=== PATIENT | female | born 1990 | race Caucasian/White ===

== ENCOUNTER 2021-06-03 02:19 | Inpatient (IN) ==
[2021-06-03] MEDS ORDERED: MOM Conc 10 ML UD.LIQ PO PRN (09:36)
[2021-06-03] MEDS ORDERED: Mag Hydrox/Al Hydrox/Simeth 30 ML UDC PO PRN (09:36)
[2021-06-03] MEDS ORDERED: Haloperidol Lactate 5 MG/ML VIAL IM PRN (09:36)
[2021-06-03] MEDS ORDERED: *HR* LORazepam 2 MG/ML VIAL IM PRN (09:36)
[2021-06-03] MEDS ORDERED: traZODone 50 MG TABLET PO PRN (09:36)
[2021-06-03] MEDS ORDERED: haloperidoL 5 MG TABLET PO PRN (09:36)
[2021-06-03] MEDS ORDERED: *HR* LORazepam 1 MG TABLET PO PRN (09:36)
[2021-06-03] MEDS ORDERED: cloNIDine HCL 0.1 MG TABLET PO ONE (11:26)
[2021-06-03] MEDS: Losartan/HCTZ 50-12.5 TABLET PO SCH (12:29)
[2021-06-03] MEDS: risperiDONE 1 MG TABLET PO SCH (20:30)
[2021-06-03] MEDS: hydrOXYzine pamoate 25 MG CAPSULE PO PRN (20:31)
[2021-06-03] MEDS: Acetaminophen 325 MG TABLET PO PRN (21:12)
[2021-06-04] MEDS: risperiDONE 1 MG TABLET PO SCH (08:52)
[2021-06-04] MEDS: Losartan/HCTZ 50-12.5 TABLET PO SCH (08:52)
[2021-06-04] MEDS: Acetaminophen 325 MG TABLET PO PRN (08:52)
[2021-06-04] MEDS ORDERED: Ibuprofen 400 MG TABLET PO PRN (10:38)
[2021-06-04] MEDS ORDERED: Acetaminophen 325 MG TABLET PO ONE (10:39)
[2021-06-04] MEDS: hydrOXYzine pamoate 25 MG CAPSULE PO PRN ×2 (13:04→21:15)
[2021-06-04] MEDS ORDERED: Acetaminophen 325 MG TABLET PO PRN (18:00)
[2021-06-04] MEDS ORDERED: risperiDONE 1 MG TABLET PO SCH (21:00)
[2021-06-05] MEDS ORDERED: risperiDONE 1 MG TABLET PO SCH (09:00)
[2021-06-05] MEDS: Losartan/HCTZ 50-12.5 TABLET PO SCH (09:08)
[2021-06-05 09:13] VITALS: BP 125/88; PULSE 119; TEMP 97.9; O2SAT 96
== END 2021-06-05 11:20 | disposition home or self-care (01) | DRG 753 ==
LOC: EMEROOARM 02:19 → 1ANU 08:59
PROVIDERS: ADMIT Psychiatry & Neurology Psychiatry; ATTEND Psychiatry & Neurology Psychiatry

== ENCOUNTER → 2022-06-12 03:35 | Observation (INO) ==
[2022-06-12 02:23] LABS: Basophils % 0.2 %; Eosinophils # 0.2 K/mcL (0.0-0.6); Eosinophils % 1.5 %; Hematocrit 33.1 % (35.3-44.9); Hemoglobin 10.7 g/dL (11.5-15.4); Immature Granulocytes % 0.2 % (0-4); Lymphocytes # 2.9 K/mcL (0.6-4.6); Lymphocytes % 28.5 %; Mean Corpuscular HGB Conc 32.3 g/dL (31.6-35.5); Mean Corpuscular Hemoglobin 30.1 pg (28.0-33.3); Mean Platelet Volume 10.5 fL (9.4-12.4); Monocytes # 0.7 K/mcL (0.0-1.3); Monocytes % 6.9 %; Neutrophils # 6.4 K/mcL (1.6-8.9); Platelet Count 212 K/mcL (140-400); Red Blood Count 3.56 M/mcL (3.82-4.97); Red Cell Distribution Width 13.2 % (11.5-14.5); Segmented Neutrophils % 62.7 %; White Blood Count 10.1 K/mcL (4.3-11.1)
[2022-06-12 02:24] LABS: Protein/Creatinine Ratio,Urine 0.19 mg/mg (0.00-0.20)
[2022-06-12 02:34] LABS: Alanine Aminotransferase 9 Units/L (7-52); Aspartate Amino Transferase 11 Units/L (13-39); BUN/Creatinine Ratio 21 (6-26); Blood Urea Nitrogen 12 mg/dL (6-20); Lactate Dehydrogenase 125 Units/L (140-271); Uric Acid 4.7 mg/dL (2.3-7.6); eGFR For African Americans > 60 (> 60); eGFR For Non-African Americans > 60 (> 60)
[~2022-06-12 03:35] MED LIST: 0.9 % Sodium Chloride 1,000 ML IV ONE; Lidocaine -MPF 2% 2 ML VIAL ONE; Metoclopramide 10 MG/2 ML VIAL IVP ONE
== END | disposition home or self-care (01) ==
LOC: 1NENULAB
PROVIDERS: ADMIT Advanced Practice Midwife; ATTEND Advanced Practice Midwife

== ENCOUNTER 2022-06-30 05:15 | Inpatient (IN) ==
[~2022-06-30 05:15] MED LIST changes: -0.9 % Sodium Chloride 1,000 ML IV ONE; +Azithromycin 500 MG in 0.9 % Sodium Chloride 250 ML IVPB PRN; +CeFAZolin Syr 3,000MG/30 ML 3,000 MG/30 ML SYRINGE IVPB ONE; +Famotidine 20 MG/2 ML VIAL IVP ONE; -Lidocaine -MPF 2% 2 ML VIAL ONE; +OXYTOCIN/RINGERS LACTATE 10 UNIT/166.6 ML BAG IVC ONE; +Oxytocin 30 UNIT/503 ML BAG IVC SCH; +Ringers Solution, Lactated 1,000 ML IVC ONE; +Ringers Solution, Lactated 1,000 ML IVC SCH
[2022-06-30 06:06] LABS: Basophils % 0.2 %; Eosinophils # 0.1 K/mcL (0.0-0.6); Eosinophils % 0.9 %; Hematocrit 33.3 % (35.3-44.9); Immature Granulocytes % 0.6 % (0-4); Lymphocytes # 2.9 K/mcL (0.6-4.6); Lymphocytes % 23.3 %; Mean Corpuscular Hemoglobin 30.3 pg (28.0-33.3); Mean Corpuscular Volume 91.7 fL (83.0-100.0); Mean Platelet Volume 10.9 fL (9.4-12.4); Monocytes # 0.7 K/mcL (0.0-1.3); Monocytes % 5.8 %; Neutrophils # 8.5 K/mcL (1.6-8.9); Platelet Count 276 K/mcL (140-400); Red Blood Count 3.63 M/mcL (3.82-4.97); Red Cell Distribution Width 13.5 % (11.5-14.5); Segmented Neutrophils % 69.2 %; White Blood Count 12.3 K/mcL (4.3-11.1)
[2022-06-30] MEDS ORDERED: *HR* Labetalol 20 MG/4 ML SYRINGE IVP ONE (06:41)
[2022-06-30] MEDS ORDERED: Naloxone 0.4 MG/ML INJ IVP PRN (07:27)
[2022-06-30] MEDS ORDERED: *HR* FentaNYL (PF) 100 MCG/2 ML VIAL IVP PRN (07:27)
[2022-06-30] MEDS ORDERED: *HR* Labetalol 20 MG/4 ML SYRINGE IVP PRN (07:27)
[2022-06-30] MEDS ORDERED: Promethazine 6.25 MG in Water for inj. (sterile) 20 ML IVPB PRN (07:27)
[2022-06-30] MEDS ORDERED: *HR* Nalbuphine 10 MG/ML AMPUL IV PRN (07:28)
[2022-06-30] MEDS ORDERED: *HR* Morphine Sulfate/PF 10 MG/10 ML AMPUL ONE (07:35)
[2022-06-30] MEDS ORDERED: Ondansetron 4 MG/2 ML VIAL ONE (07:35)
[2022-06-30] MEDS ORDERED: *HR* FentaNYL (PF) 100 MCG/2 ML VIAL ONE (07:38)
[2022-06-30] MEDS ORDERED: Acetaminophen IV 1,000 MG/100 ML BAG IVPB ONE (08:45)
[2022-06-30] MEDS ORDERED: Lidocaine -MPF 2% 2 ML VIAL ONE (08:47)
[2022-06-30] MEDS ORDERED: Ringers Solution, Lactated 1,000 ML ONE (08:48)
[2022-06-30] MEDS ORDERED: Ketorolac 30 MG/ML VIAL ONE (09:23)
[2022-06-30] MEDS ORDERED: hydrOXYzine pamoate 25 MG CAPSULE PO PRN (11:53)
[2022-06-30] MEDS ORDERED: Oxytocin 30 UNIT/503 ML BAG IVC SCH (11:53)
[2022-06-30] MEDS ORDERED: Rho Immune Globulin 1,500 UNIT SYRINGE IM ONE (11:53)
[2022-06-30] MEDS ORDERED: Metoclopramide 10 MG/2 ML VIAL IVP PRN (11:53)
[2022-06-30] MEDS ORDERED: Ibuprofen 600 MG TABLET PO SCH (12:41)
[2022-06-30] MEDS: Acetaminophen 325 MG TABLET PO SCH ×2 (13:57→23:18)
[2022-06-30] MEDS: metroNIDAZOLE 500 MG TABLET PO SCH ×2 (13:58→23:18)
[2022-06-30] MEDS: Ringers Solution, Lactated 1,000 ML IVC SCH (13:58)
[2022-06-30] MEDS: cephALEXin 500 MG CAPSULE PO SCH (13:58)
[2022-06-30] MEDS ORDERED: Magnesium Sulf 20 gm/SW 500mL 4 GM/100 ML BAG IV ONE (15:09)
[2022-06-30] MEDS ORDERED: Magnesium Sulf 20 gm/SW 500mL 6 GM/150 ML BAG IV ONE (15:13)
[2022-06-30] MEDS: Magnesium Sulf 20 gm/SW 500mL 20 GM/500 ML IV.SOLN IVC SCH (15:59)
[2022-06-30 16:59] LABS: Basophils % 0.1 %; Eosinophils % 0.3 %; Hematocrit 28.4 % (35.3-44.9); Hemoglobin 9.5 g/dL (11.5-15.4); Immature Granulocytes % 0.3 % (0-4); Lymphocytes % 17.5 %; Mean Corpuscular HGB Conc 33.5 g/dL (31.6-35.5); Mean Corpuscular Hemoglobin 30.9 pg (28.0-33.3); Mean Corpuscular Volume 92.5 fL (83.0-100.0); Mean Platelet Volume 10.5 fL (9.4-12.4); Monocytes # 0.8 K/mcL (0.0-1.3); Monocytes % 7.3 %; Neutrophils # 8.5 K/mcL (1.6-8.9); Platelet Count 193 K/mcL (140-400); Red Blood Count 3.07 M/mcL (3.82-4.97); Red Cell Distribution Width 13.6 % (11.5-14.5); Segmented Neutrophils % 74.5 %; White Blood Count 11.4 K/mcL (4.3-11.1)
[2022-06-30 17:13] LABS: Alanine Aminotransferase 5 Units/L (7-52); Aspartate Amino Transferase 17 Units/L (13-39); BUN/Creatinine Ratio 30 (6-26); Blood Urea Nitrogen 17 mg/dL (6-20); Lactate Dehydrogenase 215 Units/L (140-271)
[2022-06-30] MEDS: *HR* OxyCODONE Immed Rel 5 MG TABLET PO PRN ×2 (18:55→23:19)
[2022-06-30] MEDS: Insulin DETEMIR 100 UNIT/ML X5UNITS SUBQ SCH (22:13)
[2022-07-01] MEDS: Magnesium Sulf 20 gm/SW 500mL 20 GM/500 ML IV.SOLN IVC SCH ×2 (01:56→12:52)
[2022-07-01] MEDS: *HR* OxyCODONE Immed Rel 5 MG TABLET PO PRN ×2 (04:40→08:23)
[2022-07-01] MEDS: Acetaminophen 325 MG TABLET PO SCH ×4 (04:41→21:40)
[2022-07-01 04:57] LABS: Basophils % 0.1 %; Eosinophils % 0.4 %; Hematocrit 29.6 % (35.3-44.9); Hemoglobin 9.8 g/dL (11.5-15.4); Immature Granulocytes % 0.4 % (0-4); Lymphocytes # 0.9 K/mcL (0.6-4.6); Lymphocytes % 9.3 %; Mean Corpuscular HGB Conc 33.1 g/dL (31.6-35.5); Mean Corpuscular Hemoglobin 30.4 pg (28.0-33.3); Mean Corpuscular Volume 91.9 fL (83.0-100.0); Mean Platelet Volume 10.4 fL (9.4-12.4); Monocytes # 0.6 K/mcL (0.0-1.3); Monocytes % 5.8 %; Neutrophils # 8.5 K/mcL (1.6-8.9); Platelet Count 206 K/mcL (140-400); Red Blood Count 3.22 M/mcL (3.82-4.97); Red Cell Distribution Width 13.6 % (11.5-14.5); White Blood Count 10.1 K/mcL (4.3-11.1)
[2022-07-01] MEDS: Insulin LISPRO 300 UNITS/3 ML VIAL SUBQ SCH ×3 (08:22→17:24)
[2022-07-01] MEDS: cephALEXin 500 MG CAPSULE PO SCH ×3 (08:22→23:51)
[2022-07-01] MEDS: *HR* Enoxaparin 80 MG/0.8 ML SYRINGE SQ SCH ×2 (08:23→20:40)
[2022-07-01] MEDS: Prenatal Vit/FA 1 EACH TABLET PO SCH (08:23)
[2022-07-01] MEDS: metroNIDAZOLE 500 MG TABLET PO SCH ×3 (08:23→23:49)
[2022-07-01] MEDS: Simethicone 80 MG TAB.CHEW PO PRN ×2 (08:24→17:31)
[2022-07-01] MEDS: Insulin DETEMIR 100 UNIT/ML X5UNITS SUBQ SCH ×2 (08:38→22:45)
[2022-07-01] MEDS ORDERED: Losartan/HCTZ 50-12.5 TABLET PO SCH (09:00)
[2022-07-01] MEDS ORDERED: risperiDONE 1 MG TABLET PO SCH (09:00)
[2022-07-01] MEDS: Ketorolac 30 MG/ML VIAL IVP SCH ×3 (10:00→21:34)
[2022-07-01] MEDS: Ondansetron 4 MG/2 ML VIAL IVP PRN (20:31)
[2022-07-01] MEDS: Ringers Solution, Lactated 1,000 ML IVC SCH (22:32)
[2022-07-02] MEDS: Ondansetron 4 MG/2 ML VIAL IVP PRN (02:55)
[2022-07-02] MEDS: Simethicone 80 MG TAB.CHEW PO PRN (03:04)
[2022-07-02] MEDS: Ketorolac 30 MG/ML VIAL IVP SCH ×3 (03:52→15:55)
[2022-07-02] MEDS: Acetaminophen 325 MG TABLET PO SCH (05:38)
[2022-07-02] MEDS: *HR* OxyCODONE Immed Rel 5 MG TABLET PO PRN (05:39)
[2022-07-02] MEDS: Ringers Solution, Lactated 1,000 ML IVC SCH (07:49)
[2022-07-02] MEDS: *HR* Enoxaparin 80 MG/0.8 ML SYRINGE SQ SCH (08:09)
[2022-07-02] MEDS: cephALEXin 500 MG CAPSULE PO SCH (08:10)
[2022-07-02] MEDS: metroNIDAZOLE 500 MG TABLET PO SCH (08:10)
[2022-07-02] MEDS: Prenatal Vit/FA 1 EACH TABLET PO SCH (08:11)
[2022-07-02] MEDS ORDERED: NIFEdipine XL (24 HR) 30 MG TAB.ER.24 PO SCH (09:00)
[2022-07-02] MEDS: Insulin DETEMIR 100 UNIT/ML X5UNITS SUBQ SCH (10:16)
[2022-07-02 11:19] VITALS: TEMP 98.2
[2022-07-02 15:56] VITALS: BP 134/82; PULSE 98; O2SAT 99
[2022-07-02] MEDS: Insulin LISPRO 300 UNITS/3 ML VIAL SUBQ SCH ×2 (17:00→17:52)
== END 2022-07-02 18:59 | disposition home or self-care (01) | DRG 540 ==
LOC: 1NENULAB → 1NENUOBS 12:04
PROVIDERS: ADMIT Student in an Organized Health Care Education/Training Program; ATTEND Student in an Organized Health Care Education/Training Program